=== PATIENT | female | born 1985 | race Caucasian/White ===

== ENCOUNTER 2016-10-06 06:11 | Emergency (ER) | payer OTHER ==
[~2016-10-06] VITALS: Ht 162.6 cm; Wt 54.8 kg
[~2016-10-06 06:11] MED LIST: DRV100 PO; PENI-82 PO
[2016-10-06 06:16] VITALS: TEMP 36.3; Ht 162.6 cm; Wt 54.8 kg
[2016-10-06] MEDS ORDERED: DiphenhydrAMINE HCL 50 MG/ML VIAL IV STA (06:29)
[2016-10-06] MEDS ORDERED: ONDANSETRON INJ 2 MG/ML 2 ML VIAL IV STA (06:29)
[2016-10-06] MEDS ORDERED: KETOROLAC TROMETHAMINE 30 MG/ML VIAL IV STA (06:29)
[2016-10-06] MEDS ORDERED: SODIUM CHLORIDE 0.9% 1000ML 1,000 ML IV STA ×2 (06:29)
--- NOTE | 2016-10-06 06:43 | EMERGENCY ROOM VISIT NOTE ---
History Report prepared by Amadouibana: Guanako Claudio Under the Supervision of: Dr. Homero Souza M.D. First contact with patient: 06:22 Chief Complaint: VOMITING Stated Complaint: VOMITING,PAIN Nursing Triage Summary: Pt complains of headache and vomiting since 3am. Pt with history of migraines. Pt took Tylenol with no relief. History of Present Illness The patient is a 31 year old female who presents to the Emergency Room with complaints of persistent vomiting since 0300 this morning. The patient is currently feeling nauseous and did not find relief from Zofran just after 0300. The patient also complains of a headache since 0300 that was not relieved with Tylenol. The patient has a history of migraines. She denies fevers, neck stiffness, rashes, weakness or numbness of the extremities. She was having trouble sleeping secondary to her symptoms. She denies any head trauma. The patient has no history of abdominal surgeries and denies the possibility of . The patient would like a work note. Source of History: patient Onset: 0300 this morning Position: other (GI) Quality: other (vomiting) Timing: other (persistent) Associated Symptoms: + headache, + nausea, No fevers, No neck pain, No numbness, No rash, No weakness Review of Systems See HPI for pertinent positives & negatives. A total of 10 systems reviewed and were otherwise negative. Past Medical & Surgical Medical Problems: (1) Asthma (2) Bronchitis (3) Migraines Family History Diabetes mellitus Heart disease Hypertension Lung disease Seizures Social History Smoking Status: Current Every Day Smoker Occupation Status: employed Current/Historical Medications No Active Prescriptions or Reported Meds Allergies Coded Allergies: No Known Allergies (Unverified , 10/06/16) Physical Exam Vital Signs Date Time Temp Pulse Resp B/P Pulse Ox O2 Delivery O2 Flow Rate FiO2 10/06/16 08:00 62 18 127/71 94 10/06/16 06:16 36.3 78 18 145/89 96 Room Air Physical Exam GENERAL: Patient is well appearing and in mild distress. HEAD: No acute trauma, normocephalic atraumatic ENT: Mucous membranes moist, no nasal congestion. EYES: Equal/Reactive Bilaterally, No scleral icterus, Normal ROM NECK: No nuchal rigidity, no meningismus, trachea is midline, full ROM LUNGS: No dyspnea. Clear to auscultation and equal bilaterally. No wheeze, no rhonchi. HEART: Regular rate and rhythm. No murmurs, rubs, gallops appreciated. ABDOMEN: Soft, nontender, bowel sounds positive, no masses appreciated, no peritonitis. BACK: No midline tenderness, no CVA tenderness EXTREMITIES: Normal motion all extremities, no cyanosis, no edema. NEUROLOGIC: Awake, Alert, Oriented, no acute motor or sensory deficits, no focal weakness, cranial nerves grossly intact. SKIN: No rash, no jaundice, no diaphoresis. Medical Decision & Procedures Medications Administered Medications (Trade) Dose Ordered Sig/[facility] Route Start Time Stop Time Status Last Admin Dose Admin Ketorolac Tromethamine (Toradol Inj) 30 mg NOW STAT IV 10/06/16 06:29 10/06/16 06:30 DC 10/06/16 06:40 30 MG Ondansetron HCl (Zofran Inj) 4 mg NOW STAT IV 10/06/16 06:29 10/06/16 06:30 DC 10/06/16 06:38 4 MG Diphenhydramine HCl 50 mg 50 mg NOW STAT IV 10/06/16 06:29 10/06/16 06:30 DC 10/06/16 06:39 50 MG Sodium Chloride 1,000 ml @ 999 mls/hr Q1H1M STAT IV 10/06/16 06:29 10/06/16 07:29 DC 10/06/16 06:38 999 MLS/HR Sodium Chloride (Nss 1000ml) 1,000 ml @ 999 mls/hr Q1H1M STAT IV 10/06/16 06:29 10/06/16 07:29 DC 10/06/16 06:29 999 MLS/HR ED Course 0627: The patient was evaluated in room B10. A complete history and physical exam was performed. 0629: NSS 1000 ml @ 999 mls/hr, NSS 1000 ml @ 999 mls/hr, Benadryl 50 mg IV, Zofran 4 mg IV, Toradol 30 mg IV. 0735: Reassessed the patient. She has had complete resolution of her symptoms and wishes to go home. She requested a work note for her as well as her partner. Medical Decision Differential: Headache, Migraine, Cluster Headache, Seizure, Meningitis, Sinusitis, CO exposure, ICH/SAH, Infectious, Tumor, Sinus Thrombosis, Arterial Dissection, amongst other pathologies entertained. 31 yr old female with long history of migraines, often brought on by menstrual cycle, arrives with overnight headache and nausea/vomiting. No risks for dissection. No neuro deficits. Similar to previous headaches. She does not have meningitis nor other evidence of infection. Given above with complete resolution of symptoms and feeling well. Comfortable with discharge. Rest and hydration over next 24-48 hours. Impression Primary Impression: Headache Additional Impressions: Nausea & vomiting Dehydration Scribe Attestation The scribe's documentation has been prepared under my direction and personally reviewed by me in its entirety. I confirm that the note above accurately reflects all work, treatment, procedures, and medical decision making performed by me. Departure Information Dispostion Home / Self-Care Prescriptions No Active Prescriptions or Reported Meds Referrals No Doctor, Assigned (PCP) Forms HOME CARE DOCUMENTATION FORM, IMPORTANT VISIT INFORMATION, Work Instructions Patient Instructions ED Headache Migraine, [facility] Problem Qualifiers
[2016-10-06 08:00] VITALS: BP 127/71; PULSE 62; O2SAT 94
[2017-01-07] MEDS ORDERED: AZIT-57 PO (14:37)
[2017-01-07] MEDS ORDERED: PRED10TA PO (14:37)
[2017-01-07] MEDS ORDERED: ALBINS/ INH (14:38)
== END 2016-10-06 08:03 | disposition home or self-care (01) ==
LOC: C.EDB 06:12
DX: G43.909 Migraine, unspecified, not intractable, without status migrainosus (principal); R11.2 Nausea with vomiting, unspecified; E86.0 Dehydration; J45.909 Unspecified asthma, uncomplicated; F17.200 Nicotine dependence, unspecified, uncomplicated; Z83.3 Family history of diabetes mellitus; Z82.49 Family history of ischemic heart disease and other diseases of the circulatory system; Z82.0 Family history of epilepsy and other diseases of the nervous system

== ENCOUNTER 2017-01-05 09:27 | Inpatient (IN) | payer OTHER ==
[~2017-01-05] VITALS: Ht 160 cm; Wt 51.0 kg
[2017-01-05] MEDS ORDERED: ALBUT/IPRATROP 3MG/0.5MG NEB 3 ML VIAL INH STA ×4 (09:37→12:58)
[2017-01-05] MEDS ORDERED: VNTHFA/IN INH (10:00)
[2017-01-05] MEDS ORDERED: PREDPOW47 PO (10:00)
[2017-01-05 10:01] LABS: BASO % 0.1 %; BASO ABS # 0.01 K/uL (0-0.2); COMPLETE YES; EOS % 0.1 %; HEMATOCRIT 45.1 % (37-47); IG% 0.2 %; LYMPH % 14.8 %; LYMPH ABS # 1.73 K/uL (1.2-3.4); MEAN CORPUSCULAR HEMOGLOBIN 34.6 pg (25-34); MEAN CORPUSCULAR HGB CONC 35.3 g/dl (32-36); MEAN PLATELET VOLUME 10.4 fL (7.4-10.4); MONO % 5.3 %; NEUT % 79.5 %; PLATELET COUNT 152 K/uL (130-400); WHITE BLOOD COUNT 11.69 K/uL (4.8-10.8)
[2017-01-05] MEDS ORDERED: METHYLPREDNISOLONE 125 MG VIAL IV STA (10:08)
[2017-01-05 10:18] LABS: BUN/CREATININE RATIO 11.9 (10-20); CALCIUM 9.2 mg/dl (8.5-10.1); POTASSIUM 3.5 mmol/L (3.5-5.1)
--- NOTE | 2017-01-05 10:25 | DIAGNOSTIC IMAGING REPORT ---
CHEST ONE VIEW PORTABLE HISTORY: 31 years-old Female SOB, asthma, wheezing COMPARISON: None available TECHNIQUE: Portable upright AP view of the chest. FINDINGS: Cardiomediastinal and hilar silhouettes are within normal limits. No pneumothorax or pleural effusion. Linear retrocardiac subsegmental opacities suggest atelectasis. Bones are grossly intact. IMPRESSION: Linear subsegmental retrocardiac opacity suggests atelectasis. Lungs are otherwise clear. The above report was generated using voice recognition software. It may contain grammatical, syntax or spelling errors. Electronically signed by: Raymond Miller M.D. 01/05/2017 10:24 AM Dictated Date/Time: 01/05/2017 10:23 AM
[2017-01-05 11:30] LABS: URINE APPEARANCE CLEAR (CLEAR); URINE BILIRUBIN NEG (NEG); URINE COLOR YELLOW; URINE NITRITE NEG (NEG); URINE SPECIFIC GRAVITY 1.022 (1.000-1.030); UROBILINOGEN NEG (NEG); ZZUR CULT IF INDIC CLEAN CATCH NO
[2017-01-05 11:35] LABS: MANUAL MICROSCOPIC REQUIRED? NO; REVIEW REQ? NO
[2017-01-05] MEDS ORDERED: HYDROCODONE/HOMATROPINE SYRUP 5MG/1.5MG 5ML UDP PO STA (11:43)
[2017-01-05] MEDS ORDERED: MAGNESIUM SULFATE 1GM / D5W 1 GM BAG IV STA (12:58)
[2017-01-05] MEDS ORDERED: GUAIFENESIN/CODEINE 100MG/10MG 5ML UDC PO PRN (14:00)
[2017-01-05] MEDS ORDERED: MAGNESIUM HYDROXIDE SUSP 30 ML UDC PO PRN (14:00)
[2017-01-05] MEDS ORDERED: NITROGLYCERIN 0.4 MG SL PER TAB CHARGE SL PRN (14:00)
[2017-01-05] MEDS ORDERED: LEVALBUTEROL/IPRATROPIUM NEB INH PRN (14:00)
[2017-01-05] MEDS ORDERED: ACETAMINOPHEN 325 MG TAB PO PRN (14:00)
[2017-01-05] MEDS ORDERED: ALUMINUM/MAGNESIUM/SIMETH (MAALOX MAX) 30 ML UDC PO PRN (14:00)
[2017-01-05] MEDS ORDERED: ONDANSETRON INJ 2 MG/ML 2 ML VIAL IV PRN (14:00)
[2017-01-05] MEDS ORDERED: ALBUTEROL HFA 8 GM INHALER INH PRN (14:00)
[2017-01-05] MEDS ORDERED: AZITHROMYCIN IV 500 MG in DEXTROSE 5% 250ML 250 ML IV SCH (14:30)
[2017-01-05 14:57] VITALS: BP 152/98; PULSE 84; TEMP 36.9; O2SAT 94; Ht 160 cm; Wt 51.0 kg
[2017-01-05] MEDS ORDERED: LEVALBUTEROL/IPRATROPIUM NEB INH SCH (15:00)
[2017-01-05] MEDS: IPRATROPIUM BROMIDE NEB SOLN 0.02% 2.5 ML VIAL INH PRN (16:16)
[2017-01-05] MEDS: LEVALBUTEROL 1.25MG/0.5ML NEB INH PRN (16:16)
[2017-01-05 16:17] VITALS: PULSE 84; O2SAT 93
--- NOTE | 2017-01-05 16:17 | EMERGENCY ROOM VISIT NOTE ---
History Report prepared by Sanket: Rolando Morgan Under the Supervision of: Dr. Angel Laboy M.D. First contact with patient: 09:36 Chief Complaint: COUGH Stated Complaint: ASTHMA Nursing Triage Summary: pt reports hx of asthma. pt reports for the past 4 days she has had a productive cough with clear sputum. pt reports taking steroids and inhaler with no relief. History of Present Illness The patient is a 31 year old female who presents to the Emergency Room with complaints of a constant cough that started 4 days ago. She rates her discomfort as a 6/10 in severity. The patient reports that she has been experiencing a productive cough with intermittent clear sputum. The patient states that she went to outpatient care for her symptoms, where they gave her steroids and an inhaler. She admits that she took steroids, which she has been taking for three days, and used her inhaler for her symptoms, but denies any relief. She also reports that she has been experiencing abdominal pain, which she believes is due to her coughing. The patient states that she has also been experiencing chest tightness and intermittent pain. The patient admits that she has had asthma for a long time. She denies being admitted for asthma in the past. She states that her PCP is Dr. Mathis. The patient admits that she had recently quit smoking due to her current symptoms. The patient denies any other medical problems, edema to her legs, being around someone sick, headache, fevers , chills, diaphoresis, visual changes, neck pain, nausea, vomiting, back pain, melena, hematochezia, urinary symptoms, numbness, weakness, lymphadenopathy, rash, or other complaints. Source of History: patient Onset: four days ago Position: other (global) Symptom Intensity: 6/10 Timing: constant Modifying Factors (Relieving): other (steroids, inhaler) Associated Symptoms: + chest pain, + abdominal pain Review of Systems See HPI for pertinent positives and negatives. A total of ten systems were reviewed and were otherwise negative. Past Medical & Surgical Medical Problems: (1) Asthma (2) Asthma exacerbation (3) Bronchitis (4) Migraines Family History Cancer Diabetes mellitus Gallbladder disease Heart disease Hypertension Kidney disease Kidney stones Lung disease Seizures Social History Smoking Status: Current Every Day Smoker Alcohol Use: none Marital Status: in relationship Housing Status: lives with family, lives with significant other Occupation Status: employed Current/Historical Medications Scheduled Albuterol Hfa (Ventolin Hfa), 2 PUFFS INH Q1H Prednisolone (Prednisolone), 10 PO UD Allergies Coded Allergies: No Known Allergies (Unverified , 01/05/17) Physical Exam Vital Signs Date Time Temp Pulse Resp B/P (MAP) Pulse Ox O2 Delivery O2 Flow Rate FiO2 01/05/17 13:00 99 27 90 Room Air 01/05/17 12:09 83 20 134/75 94 Room Air 01/05/17 10:25 82 22 144/96 95 Room Air 01/05/17 10:18 88 01/05/17 10:01 94 Room Air 01/05/17 09:30 36.7 87 25 151/96 90 Room Air Physical Exam GENERAL: Awake, alert, non-toxic appearing, in no distress HENT: Normocephalic, atraumatic. Oropharynx unremarkable. EYES: Normal conjunctiva. Sclera non-icteric. NECK: Supple. No nuchal rigidity. FROM. No JVD. RESPIRATORY: Diffuse rhonchi and wheezing bilaterally. CARDIAC: Borderline tachycardic, normal rhythm. Extremities warm and well perfused. Pulses equal. ABDOMEN: Soft, non-distended. No tenderness to palpation. No rebound or guarding. No masses. RECTAL: Deferred. MUSCULOSKELETAL: Chest examination reveals no tenderness. The back is symmetrical on inspection without obvious abnormality. There is no CVA tenderness to palpation. No joint edema. LOWER EXTREMITIES: Calves are equal size bilaterally and non-tender. No edema. No discoloration. NEURO: Normal sensorium. No sensory or motor deficits noted. SKIN: No rash or jaundice noted. Medical Decision & Procedures ER Provider Diagnostic Interpretation: X-ray: Per my interpretation, radiologist review. CHEST ONE VIEW PORTABLE HISTORY: 31 years-old Female SOB, asthma, wheezing COMPARISON: None available TECHNIQUE: Portable upright AP view of the chest. FINDINGS: Cardiomediastinal and hilar silhouettes are within normal limits. No pneumothorax or pleural effusion. Linear retrocardiac subsegmental opacities suggest atelectasis. Bones are grossly intact. IMPRESSION: Linear subsegmental retrocardiac opacity suggests atelectasis. Lungs are otherwise clear. The above report was generated using voice recognition software. It may contain grammatical, syntax or spelling errors. Electronically signed by: Raymond Miller M.D. 01/05/2017 10:24 AM Dictated Date/Time: 01/05/2017 10:23 AM Laboratory Results 01/05/17 09:48 Red Blood Count 4.60, Mean Corpuscular Volume 98.0, Mean Corpuscular Hemoglobin 34.6, Mean Corpuscular Hemoglobin Concent 35.3, Mean Platelet Volume 10.4, Neutrophils (%) (Auto) 79.5, Lymphocytes (%) (Auto) 14.8, Monocytes (%) (Auto) 5.3, Eosinophils (%) (Auto) 0.1, Basophils (%) (Auto) 0.1, Neutrophils # (Auto) 9.30, Lymphocytes # (Auto) 1.73, Monocytes # (Auto) 0.62, Eosinophils # (Auto) 0.01, Basophils # (Auto) 0.01 01/05/17 09:48 Test 01/05/17 09:48 01/05/17 11:05 White Blood Count 11.69 K/uL (4.8-10.8) Red Blood Count 4.60 M/uL (4.2-5.4) Hemoglobin 15.9 g/dL (12.0-16.0) Hematocrit 45.1 % (37-47) Mean Corpuscular Volume 98.0 fL (80-100) Mean Corpuscular Hemoglobin 34.6 pg (25-34) Mean Corpuscular Hemoglobin Concent 35.3 g/dl (32-36) Platelet Count 152 K/uL (130-400) Mean Platelet Volume 10.4 fL (7.4-10.4) Neutrophils (%) (Auto) 79.5 % Lymphocytes (%) (Auto) 14.8 % Monocytes (%) (Auto) 5.3 % Eosinophils (%) (Auto) 0.1 % Basophils (%) (Auto) 0.1 % Neutrophils # (Auto) 9.30 K/uL (1.4-6.5) Lymphocytes # (Auto) 1.73 K/uL (1.2-3.4) Monocytes # (Auto) 0.62 K/uL (0.11-0.59) Eosinophils # (Auto) 0.01 K/uL (0-0.5) Basophils # (Auto) 0.01 K/uL (0-0.2) RDW Standard Deviation 43.7 fL (36.4-46.3) RDW Coefficient of Variation 12.1 % (11.5-14.5) Immature Granulocyte % (Auto) 0.2 % Immature Granulocyte # (Auto) 0.02 K/uL (0.00-0.02) Anion Gap 7.0 mmol/L (3-11) Est Creatinine Clear Calc Drug Dose 67.3 ml/min Estimated GFR () 87.6 Estimated GFR (Non- 75.5 BUN/Creatinine Ratio 11.9 (10-20) Calcium Level 9.2 mg/dl (8.5-10.1) Total Bilirubin 0.6 mg/dl (0.2-1) Direct Bilirubin 0.2 mg/dl (0-0.2) Aspartate Amino Transf (AST/SGOT) 19 U/L (15-37) Alanine Aminotransferase (ALT/SGPT) 34 U/L (12-78) Alkaline Phosphatase 72 U/L (45-117) Total Protein 8.0 gm/dl (6.4-8.2) Albumin 4.1 gm/dl (3.4-5.0) Urine Color YELLOW Urine Appearance CLEAR (CLEAR) Urine pH 5.0 (4.5-7.5) Urine Specific [place] 1.022 (1.000-1.030) Urine Protein NEG (NEG) Urine Glucose (UA) NEG (NEG) Urine Ketones NEG (NEG) Urine Occult Blood NEG (NEG) Urine Nitrite NEG (NEG) Urine Bilirubin NEG (NEG) Urine Urobilinogen NEG (NEG) Urine Leukocyte Esterase NEG (NEG) Urine Test NEG (NEG) Laboratory results reviewed by me Medications Administered Medications (Trade) Dose Ordered Sig/[facility] Route Start Time Stop Time Status Last Admin Dose Admin Albuterol/ Ipratropium (Duoneb) 3 ml NOW STAT INH 01/05/17 09:37 01/05/17 09:38 DC 01/05/17 09:58 3 ML Methylprednisolone Sodium Succinate (Solu-Medrol IV) 125 mg NOW STAT IV 01/05/17 10:08 01/05/17 10:09 DC 01/05/17 10:23 125 MG Albuterol/ Ipratropium (Duoneb) 3 ml NOW STAT INH 01/05/17 10:11 01/05/17 10:12 DC 01/05/17 10:23 3 ML Albuterol/ Ipratropium (Duoneb) 3 ml NOW STAT INH 01/05/17 11:43 01/05/17 11:44 DC 01/05/17 11:51 3 ML Hydrocodone Bit/ Homatropine Methylb (Hycodan Syrup) 5 ml NOW STAT PO 01/05/17 11:43 01/05/17 11:44 DC 01/05/17 11:50 5 ML Albuterol/ Ipratropium (Duoneb) 3 ml NOW STAT INH 01/05/17 12:58 01/05/17 12:59 DC 01/05/17 13:08 3 ML Magnesium Sulfate (Magnesium Sulfate) 1 gm NOW STAT IV 01/05/17 12:58 01/05/17 12:59 DC 01/05/17 13:08 1 GM ED Course 0937: Ordered Duoneb 3 ml INH. 1001: The patient was evaluated in room B10. A complete history and physical exam was performed. 1008: Ordered Solu-Medrol IV 125 mg IV. 1011: Ordered Duoneb 3 ml INH. 1138: I reevaluated the patient and she is feeling somewhat better. She is still wheezing. 1143: Ordered Hycodan Syrup 5 ml PO, Duoneb 3 ml INH. 1258: Ordered Magnesium Sulfate 1 gm IV, Duoneb 3 ml INH. 1305: I reevaluated the patient and she is still short of breath. She did not do well on her ambulatory trial with nursing. Her saturation after treatment is 90 percent. 1345: I discussed the patients case with Dr. Mari, [facility] Hospitalist. He understands the patients condition and agrees to accept the patient. The patient will be further evaluated. Medical Decision Triage Nursing notes reviewed. The patient's presentation and history were concerning for shortness of breath and a history of reactive airway disease. Etiologies such as reactive airway disease, pneumonia, COPD, CHF, cardiac ischemia, pulmonary embolism, pneumothorax, musculoskeletal, infections, gastrointestinal, as well as others were entertained. The patient was evaluated. She had significant wheezing. She has been treated for several days as an outpatient. She was given nebulizer treatments and IV Solu-Medrol. She also received a dose of oral Hycodan. The patient was reassessed frequently. Chest x-ray did not reveal any evidence of pneumonia. Blood work showed a slight leukocytosis however the patient is currently taking steroids. Chemistry panel is unremarkable. The patient had an ambulatory trial performed. Her pulse oximetry was only 90%. She was tachypneic with this. She was given another nebulizer treatment for a total of 4 and a dose of IV magnesium. At this point I discussed coming into the hospital as she is failing outpatient management. The patient was in agreement. Consultation was made with the [facility] Hospitalist service. The patient was evaluated in the further management. Medication Reconcilliation Current Medication List: was personally reviewed by me Blood Pressure Screening Patient's blood pressure: Elevated blood pressure Blood pressure disposition: Elevated BP felt to be situational Consults Time Called: 1345 Consulting Physician: Dr. Mari [facility] Hospitalist Returned Call: 1345 I discussed the patients case with Dr. Mari [facility] Hospitalist. He understands the patients condition and agrees to accept the patient. The patient will be further evaluated. Impression Primary Impression: Reactive airway disease Additional Impression: Shortness of breath Scribe Attestation The scribe's documentation has been prepared under my direction and personally reviewed by me in its entirety. I confirm that the note above accurately reflects all work, treatment, procedures, and medical decision making performed by me. Departure Information Dispostion Being Evaluated By Hospitalist Referrals Tarik Marks M.D. (PCP) Patient Instructions My [facility] Problem Qualifiers
[2017-01-05] MEDS: METHYLPREDNISOLONE IV 40 MG in SYRINGE 0 ML IV SCH (16:58)
[2017-01-05] MEDS: LEVALBUTEROL 0.63MG/3 ML NEB INH SCH (19:34)
[2017-01-05 19:35] VITALS: PULSE 87; O2SAT 93
[2017-01-05] MEDS: IPRATROPIUM BROMIDE NEB SOLN 0.02% 2.5 ML VIAL INH SCH (19:35)
--- NOTE | 2017-01-05 19:36 | HISTORY & PHYSICAL EXAMINATION ---
DATE OF ADMISSION: 01/05/2017 CHIEF COMPLAINT: Shortness of breath. HISTORY OF PRESENT ILLNESS: A 31-year-old female with past medical history significant for asthma, bipolar, tobacco abuse, presents with shortness of breath and cough going on for the last 4 days who is taking rescue Prednisone and albuterol inhaler but not getting better, so she came to the ER. In the ER, after the one hour of treatments and IV steroids, she was still saturating 90% and we are called for admission. The patient is having dry cough. Denies any fever, chills, no headaches, no blurred vision, no nausea, no vomiting, has some abdominal pain while she was coughing, no diarrhea, no constipation, no blood in the urine, no blood in the stools. Currently, resting comfortably, somewhat tachycardic and oxygen saturation 90% on room air. ALLERGIES: No known drug allergies. PAST MEDICAL HISTORY: As mentioned above. PAST SURGICAL HISTORY: None. MEDICATIONS: Currently, the patient is on albuterol inhaler p.r.n. and prednisone rescue kit. FAMILY HISTORY: Significant for father has hypertension and [place]. Paternal grandfather has epilepsy and diabetes. SOCIAL HISTORY: She has quit smoking in 2011. Prior to that smoked 1 pack a day for 9 years. Denies any alcohol use. Smokes marijuana. REVIEW OF SYMPTOMS: As per HPI. Rest of review of symptoms negative. PHYSICAL EXAMINATION: GENERAL: The patient is of moderate build, not in distress. VITAL SIGNS: Temperature 36.7, pulse 99, respiratory rate 20, blood pressure 134/75, oxygen 90% room air. HEENT: No pallor, no icterus. Pupils equal, round, and reactive to light. NECK: No JVD, no neck masses, no carotid bruits. CARDIOVASCULAR: S1, S2 heard. Tachycardia. No murmur, no gallop. RESPIRATORY SYSTEM: Normal AP diameter. No accessory muscle use, bilateral rhonchi heard. No crackles. ABDOMEN: Soft, bowel sounds, nontender. No distention. CENTRAL NERVOUS SYSTEM: Cranial nerves are grossly intact. Nonfocal. EXTREMITIES: No edema, no erythema. LABS: WBC 11.6, hemoglobin 15.9, hematocrit 45.1, platelets 152. Sodium 142, potassium 3.5, chloride 111, CO2 24, BUN 12, creatinine 1, serum glucose 100. Calcium 9.2, total bilirubin 0.6, direct bilirubin 0.2, AST 19, ALT 34 alkaline phosphatase 72 Urinalysis negative. Urine test negative. IMAGING DATA: Chest x-ray: No acute findings, bibasilar atelectasis. ASSESSMENT AND PLAN: This is a 31-year-old female who presents with acute asthma. 1. Asthma exacerbation, probable bronchitis. failed out patient treatment moderate persistent asthma exacerbation? Will place on IV steroids, azithromycin, nebs around the clock and p.r.n. and monitor on tele floor. 2. Depression, not on medication. Follow with the family doctor. 4. Deep vein thrombosis prophylaxis, sequential compression devices and TEDs for now. 5. Disposition: Admit floor. Expect to discharge home and follow with the family doctor. Level 1 full code. MTDD
[2017-01-05 19:47] VITALS: BP 158/85; PULSE 76; TEMP 36.7; O2SAT 92
[2017-01-06] VITALS (13 sets, daily range): BP systolic 136–157; BP diastolic 71–93; PULSE 71–94; TEMP 36.3–36.8; O2SAT 90–95
[2017-01-06] MEDS: IPRATROPIUM BROMIDE NEB SOLN 0.02% 2.5 ML VIAL INH SCH ×4 (02:25→19:18)
[2017-01-06] MEDS: LEVALBUTEROL 0.63MG/3 ML NEB INH SCH ×4 (02:25→19:18)
[2017-01-06] MEDS: METHYLPREDNISOLONE IV 40 MG in SYRINGE 0 ML IV SCH (02:35)
--- NOTE | 2017-01-06 06:55 | Clinical Documentation Query ---
CLINICAL DOCUMENTATION QUERY 31 year old female who presents to the Emergency Room with complaints asthma exacerbation that has failed outpatient treatment with Prednisone and Albuterol inhaler. In your clinical opinion is this patient being managed for: ( ) Mild persistent asthma with exacerbation ( x ) Moderate persistent asthma with exacerbation ( ) Severe persistent asthma with exacerbation ( ) Not Agree ( ) Other explanation of clinical findings (Please Explain) ( ) Unable to determine (Please Define) ( ) Need to Discuss The medical record reflects the following clinical findings, treatment, and risk factors. Clinical Indicators: Presents with cough and rhonchi bilaterally. Failed outpatient treatment with rescue inhaler and Prednisone. Treatment: O2, IV Solumedrol, Duonebs, Azithromycin Risk Factors: Hx of asthma on 1 rescue inhaler Please clarify and document your clinical opinion in the progress notes and discharge summary. Terms such as "probable", "suspected", "likely", "questionable", "possible", or "still to be ruled out" are acceptable. IF IN AGREEMENT, YOU MUST DOCUMENT ABOVE DIAGNOSTIC STATEMENT IN DAILY PROGRESS NOTES AND DISCHARGE SUMMARY. This document is not part of the patient's record. Thank You, Freeman Sanchez, ELAINE [phone]
[2017-01-06] MEDS: AZITHROMYCIN 250 MG TAB PO SCH (07:04)
[2017-01-06 07:38] LABS: COMPLETE YES; HEMATOCRIT 41.6 % (37-47); IG% 0.3 %; LYMPH ABS # 0.78 K/uL (1.2-3.4); MEAN CELL VOLUME 97.2 fL (80-100); MEAN CORPUSCULAR HEMOGLOBIN 34.8 pg (25-34); MEAN CORPUSCULAR HGB CONC 35.8 g/dl (32-36); MEAN PLATELET VOLUME 10.2 fL (7.4-10.4); MONO % 2.2 %; NEUT % 90.5 %; PLATELET COUNT 168 K/uL (130-400); RED BLOOD COUNT 4.28 M/uL (4.2-5.4); WHITE BLOOD COUNT 11.14 K/uL (4.8-10.8)
[2017-01-06 08:11] LABS: BUN/CREATININE RATIO 13.4 (10-20); CALCIUM 9.3 mg/dl (8.5-10.1); CREATININE 0.86 mg/dl (0.60-1.20); MAGNESIUM 2.2 mg/dl (1.8-2.4)
--- NOTE | 2017-01-06 10:20 | Progress Note ---
Internal Med Progress Note Date of Service: Jan 06, 2017. Provider Documentation: SUBJECTIVE: little better but still has sob and coughing no fevers no pain no nausea still requiring oxygen OBJECTIVE: Vital Signs-as noted below Exam: General-alert and oriented. Not in distress ENT-normal hearing Neck-no neck masses Lungs-cta b/l b/l rhonchi heard no crackles Heart-s1 and s2 heard regular rate and rhythm, no murmurs Abdomen-soft bowel sounds present non tender no distension Extremities no edema no erythema Neuro-alert and oriented moves extremities Lab data as noted below. ASSESSMENT & PLAN: This is a 31-year-old female who presents with acute asthma. 1. Asthma exacerbation, probable bronchitis. failed out patient treatment moderate persistent asthma exacerbation? on IV steroids, azithromycin, nebs around the clock and p.r.n. and monitor on tele floor. slow improvement continue same. 2. Depression, not on medication. Follow with the family doctor. 4. Deep vein thrombosis prophylaxis, sequential compression devices and TEDs for now. 5. Disposition: Transfer to medical floor. Expect to discharge home and follow with the family doctor. Level 1 full code. Vital Signs: Date Time Temp Pulse Resp B/P (MAP) Pulse Ox O2 Delivery O2 Flow Rate FiO2 01/06/17 08:09 92 Nasal Cannula 2.0 01/06/17 07:55 36.5 71 18 157/87 (110) 92 01/06/17 07:38 90 16 90 Nasal Cannula 2.0 01/06/17 04:21 36.3 90 20 149/89 (109) 92 Nasal Cannula 01/06/17 04:00 Room Air 2.0 Nasal Cannula 01/06/17 02:26 82 16 90 Room Air 01/06/17 00:21 36.6 77 18 137/71 (93) 91 Room Air 01/06/17 00:01 Room Air 2.0 Nasal Cannula 01/05/17 20:00 Room Air 2.0 Nasal Cannula 01/05/17 19:47 36.7 76 20 158/85 (109) 92 Nasal Cannula 2.0 01/05/17 19:35 87 12 93 Nasal Cannula 2.0 01/05/17 16:17 84 12 93 Nasal Cannula 2.0 01/05/17 14:57 36.9 84 20 152/98 94 Nasal Cannula 2.0 01/05/17 14:01 87 20 135/85 91 Room Air 01/05/17 13:53 86 01/05/17 13:00 99 27 90 Room Air 01/05/17 12:09 83 20 134/75 94 Room Air 01/05/17 10:25 82 22 144/96 95 Room Air Lab Results: Results Past 24 Hours Test 01/05/17 11:05 01/06/17 07:22 Range/Units Urine Color YELLOW Urine Appearance CLEAR CLEAR Urine pH 5.0 4.5-7.5 Urine Specific [place] 1.022 1.000-1.030 Urine Protein NEG NEG Urine Glucose (UA) NEG NEG Urine Ketones NEG NEG Urine Occult Blood NEG NEG Urine Nitrite NEG NEG Urine Bilirubin NEG NEG Urine Urobilinogen NEG NEG Urine Leukocyte Esterase NEG NEG Urine Test NEG NEG White Blood Count 11.14 4.8-10.8 K/uL Red Blood Count 4.28 4.2-5.4 M/uL Hemoglobin 14.9 12.0-16.0 g/dL Hematocrit 41.6 37-47 % Mean Corpuscular Volume 97.2 80-100 fL Mean Corpuscular Hemoglobin 34.8 25-34 pg Mean Corpuscular Hemoglobin Concent 35.8 32-36 g/dl Platelet Count 168 130-400 K/uL Mean Platelet Volume 10.2 7.4-10.4 fL Neutrophils (%) (Auto) 90.5 % Lymphocytes (%) (Auto) 7.0 % Monocytes (%) (Auto) 2.2 % Eosinophils (%) (Auto) 0.0 % Basophils (%) (Auto) 0.0 % Neutrophils # (Auto) 10.09 1.4-6.5 K/uL Lymphocytes # (Auto) 0.78 1.2-3.4 K/uL Monocytes # (Auto) 0.24 0.11-0.59 K/uL Eosinophils # (Auto) 0.00 0-0.5 K/uL Basophils # (Auto) 0.00 0-0.2 K/uL RDW Standard Deviation 42.6 36.4-46.3 fL RDW Coefficient of Variation 12.0 11.5-14.5 % Immature Granulocyte % (Auto) 0.3 % Immature Granulocyte # (Auto) 0.03 0.00-0.02 K/uL Sodium Level 139 136-145 mmol/L Potassium Level 4.0 3.5-5.1 mmol/L Chloride Level 107 98-107 mmol/L Carbon Dioxide Level 24 21-32 mmol/L Anion Gap 8.0 3-11 mmol/L Blood Urea Nitrogen 12 7-18 mg/dl Creatinine 0.86 0.60-1.20 mg/dl Est Creatinine Clear Calc Drug Dose 77.0 ml/min Estimated GFR () 105.1 Estimated GFR (Non- 90.7 BUN/Creatinine Ratio 13.4 10-20 Random Glucose 115 70-99 mg/dl Calcium Level 9.3 8.5-10.1 mg/dl Magnesium Level 2.2 1.8-2.4 mg/dl
[2017-01-06] MEDS: METHYLPREDNISOLONE IV 60 MG in SYRINGE 0 ML IV SCH ×2 (11:07→18:05)
[2017-01-06] MEDS: IPRATROPIUM BROMIDE NEB SOLN 0.02% 2.5 ML VIAL INH PRN (13:05)
[2017-01-06] MEDS: LEVALBUTEROL 1.25MG/0.5ML NEB INH PRN (13:05)
[2017-01-07] VITALS (8 sets, daily range): BP systolic 139; BP diastolic 76; PULSE 76–92; TEMP 36.6; O2SAT 90–94
[2017-01-07] MEDS: IPRATROPIUM BROMIDE NEB SOLN 0.02% 2.5 ML VIAL INH SCH ×3 (01:39→14:33)
[2017-01-07] MEDS: LEVALBUTEROL 0.63MG/3 ML NEB INH SCH ×3 (01:39→14:33)
[2017-01-07] MEDS: METHYLPREDNISOLONE IV 60 MG in SYRINGE 0 ML IV SCH ×2 (01:51→09:26)
[2017-01-07 06:21] LABS: BASO % 0.1 %; BASO ABS # 0.01 K/uL (0-0.2); COMPLETE YES; HEMATOCRIT 44.1 % (37-47); IG% 0.3 %; LYMPH % 6.5 %; LYMPH ABS # 0.83 K/uL (1.2-3.4); MEAN CELL VOLUME 100.5 fL (80-100); MEAN CORPUSCULAR HEMOGLOBIN 33.9 pg (25-34); MEAN CORPUSCULAR HGB CONC 33.8 g/dl (32-36); MEAN PLATELET VOLUME 10.4 fL (7.4-10.4); MONO % 2.4 %; NEUT % 90.7 %; PLATELET COUNT 179 K/uL (130-400); RED BLOOD COUNT 4.39 M/uL (4.2-5.4); WHITE BLOOD COUNT 12.69 K/uL (4.8-10.8)
[2017-01-07 07:00] LABS: BUN/CREATININE RATIO 17.9 (10-20); CALCIUM 9.1 mg/dl (8.5-10.1); CREATININE 0.98 mg/dl (0.60-1.20); MAGNESIUM 2.4 mg/dl (1.8-2.4); POTASSIUM 4.3 mmol/L (3.5-5.1)
[2017-01-07] MEDS: LEVALBUTEROL 1.25MG/0.5ML NEB INH PRN (07:50)
[2017-01-07] MEDS: AZITHROMYCIN 250 MG TAB PO SCH (08:18)
[2017-01-07] MEDS ORDERED: ZTHM250 PO (14:37)
[2017-01-07] MEDS ORDERED: PRED10TA PO (14:37)
[2017-01-07] MEDS ORDERED: ALBINS/ INH (14:38)
--- NOTE | 2017-01-07 14:40 | Discharge Instructions ---
Discharge Instructions Date of Service Jan 07, 2017. Admission Reason for Admission: Asthma Exacerbation Discharge Discharge Diagnosis / Problem: ASTHMA EXACERBATION Discharge Goals Goal(s): Decrease discomfort, Improve function Activity Recommendations Activity Limitations: resume your previous activity . Instructions / Follow-Up Instructions / Follow-Up FOLLOWUP WITH FAMILY DOCTOR Tarik Novoa ON AT 11AM. Current Hospital Diet Patient's current hospital diet: Regular Diet Discharge Diet Recommended Diet: Regular Diet Pending Studies Studies pending at discharge: no Work Instructions Return To Work: after follow-up Additional Instructions: LEAVE FROM WORK UNTIL SEEN BY FAMILY DOCTOR NO STERNOUS ACTIVITY Medical Emergencies . Who to Call and When: Medical Emergencies: If at any time you feel your situation is an emergency, please call 911 immediately. . Non-Emergent Contact Non-Emergency issues call your: Primary Care Provider . . "Provider Documentation" section prepared by Wyatt Mari. . VTE Core Measure Inpt VTE Proph given/why not?: SCD's
--- NOTE | 2017-01-07 16:57 | Progress Note ---
Internal Med Progress Note Date of Service: Jan 07, 2017. Provider Documentation: SUBJECTIVE: cough improved ambulating fine sats ok on room air afebrile 'want to go home OBJECTIVE: Vital Signs-as noted below Exam: General-alert and oriented. Not in distress ENT-normal hearing Neck-no neck masses Lungs-cta b/l occasional wheezing no crackles Heart-s1 and s2 heard regular rate and rhythm, no murmurs Abdomen-soft bowel sounds present non tender no distension Extremities no edema no erythema Neuro-alert and oriented moves extremities Lab data as noted below. ASSESSMENT & PLAN: This is a 31-year-old female who presents with acute asthma. 1. Asthma exacerbation, probable bronchitis. failed out patient treatment moderate persistent asthma exacerbation? on IV steroids, azithromycin, nebs around the clock and p.r.n. and monitor on tele floor. improved discharged on albuterol nebs and prednisone taper and azithromycin to complete the course f/u with pcp. 2. Depression, not on medication. Follow with the family doctor. discharged home Vital Signs: Date Time Temp Pulse Resp B/P (MAP) Pulse Ox O2 Delivery O2 Flow Rate FiO2 01/07/17 14:37 36.6 76 15 93 Room Air 01/07/17 14:34 92 15 91 Nasal Cannula 2.0 01/07/17 13:00 93 Humidified Oxygen 2.0 01/07/17 11:08 90 Room Air 01/07/17 09:31 90 Room Air 01/07/17 08:10 Nasal Cannula 2.0 01/07/17 07:50 76 15 92 Nasal Cannula 2.0 01/07/17 07:26 36.6 90 19 139/76 (97) 92 Nasal Cannula 01/07/17 01:40 84 16 94 Nasal Cannula 2.0 01/07/17 00:00 Nasal Cannula 2.0 01/06/17 23:55 36.6 91 18 149/93 (111) 91 Room Air 01/06/17 20:00 Nasal Cannula 2.0 01/06/17 19:21 76 16 95 Room Air Lab Results: Results Past 24 Hours Test 01/07/17 05:47 Range/Units White Blood Count 12.69 4.8-10.8 K/uL Red Blood Count 4.39 4.2-5.4 M/uL Hemoglobin 14.9 12.0-16.0 g/dL Hematocrit 44.1 37-47 % Mean Corpuscular Volume 100.5 80-100 fL Mean Corpuscular Hemoglobin 33.9 25-34 pg Mean Corpuscular Hemoglobin Concent 33.8 32-36 g/dl Platelet Count 179 130-400 K/uL Mean Platelet Volume 10.4 7.4-10.4 fL Neutrophils (%) (Auto) 90.7 % Lymphocytes (%) (Auto) 6.5 % Monocytes (%) (Auto) 2.4 % Eosinophils (%) (Auto) 0.0 % Basophils (%) (Auto) 0.1 % Neutrophils # (Auto) 11.51 1.4-6.5 K/uL Lymphocytes # (Auto) 0.83 1.2-3.4 K/uL Monocytes # (Auto) 0.30 0.11-0.59 K/uL Eosinophils # (Auto) 0.00 0-0.5 K/uL Basophils # (Auto) 0.01 0-0.2 K/uL RDW Standard Deviation 44.4 36.4-46.3 fL RDW Coefficient of Variation 12.1 11.5-14.5 % Immature Granulocyte % (Auto) 0.3 % Immature Granulocyte # (Auto) 0.04 0.00-0.02 K/uL Sodium Level 139 136-145 mmol/L Potassium Level 4.3 3.5-5.1 mmol/L Chloride Level 107 98-107 mmol/L Carbon Dioxide Level 25 21-32 mmol/L Anion Gap 7.0 3-11 mmol/L Blood Urea Nitrogen 18 7-18 mg/dl Creatinine 0.98 0.60-1.20 mg/dl Est Creatinine Clear Calc Drug Dose 67.6 ml/min Estimated GFR () 89.7 Estimated GFR (Non- 77.4 BUN/Creatinine Ratio 17.9 10-20 Random Glucose 114 70-99 mg/dl Calcium Level 9.1 8.5-10.1 mg/dl Magnesium Level 2.4 1.8-2.4 mg/dl
--- NOTE | 2017-01-07 18:43 | Discharge Summary ---
Discharge Summary Date of Service Jan 07, 2017. Discharge Summary Admission Date: Jan 05, 2017 at 13:52 Discharge Date: Jan 07, 2017 Discharge Disposition: Home Principal Diagnosis: ASTHMA EXACERBATION Secondary Diagnoses/Problems: asthma, bipolar, tobacco abuse Procedures: CXR; Linear subsegmental retrocardiac opacity suggests atelectasis. Lungs are otherwise clear. Medication Reconciliation New Medications: Albuterol Sulf (Proventil 0.083% 2.5MG/3ML) 2.5 Mg/3 Ml Nebu 2.5 MG INH QID PRN for SOB/Wheezing, #1 EA 3 Refills Prednisone Tab (Prednisone) 10 Mg Tab 60 MG PO UD, #42 TAB PREDNSIONE 60MG PO DAILY X 2 DAYS THEN PREDNSIONE 50MG PO DAILY X 2 DAYS THEN PREDNSIONE 40MG PO DAILY X 2 DAYS THEN PREDNSIONE 30MG PO DAILY X 2 DAYS THEN PREDNSIONE 20MG PO DAILY X 2 DAYS THEN PREDNSIONE 10MG PO DAILY X 2 DAYS THEN STOP. Azithromycin (Azithromycin) 250 Mg Tab 250 MG PO QAM for 2 Days, TAB Continued Medications: Albuterol Hfa (Ventolin Hfa) 200 Puffs/78542 Mcg Aers 2 PUFFS INH Q1H, #1 INHALER Discontinued Medications: Prednisolone (Prednisolone) 1 Pow Pow 10 PO UD TAPER DOSE TAKE 5 TABS FOR 2 DAYS, TAKE 4 TABS FOR 2 DAYS, TAKE 3 TABS FOR 2 DAYS, TAKE 2 TABS FOR 2 DAYS TAKE 1 TAB FOR 2 DAYS Admission Information HPI (per Admitting provider): A 31-year-old female with past medical history significant for asthma, bipolar, tobacco abuse, presents with shortness of breath and cough going on for the last 4 days who is taking rescue Prednisone and albuterol inhaler but not getting better, so she came to the ER. In the ER, after the one hour of treatments and IV steroids, she was still saturating 90% and we are called for admission. The patient is having dry cough. Denies any fever, chills, no headaches, no blurred vision, no nausea, no vomiting, has some abdominal pain while she was coughing, no diarrhea, no constipation, no blood in the urine, no blood in the stools. Currently, resting comfortably, somewhat tachycardic and oxygen saturation 90% on room air. Physical Exam (per Admitting): GENERAL: The patient is of moderate build, not in distress. VITAL SIGNS: Temperature 36.7, pulse 99, respiratory rate 20, blood pressure 134/75, oxygen 90% room air. HEENT: No pallor, no icterus. Pupils equal, round, and reactive to light. NECK: No JVD, no neck masses, no carotid bruits. CARDIOVASCULAR: S1, S2 heard. Tachycardia. No murmur, no gallop. RESPIRATORY SYSTEM: Normal AP diameter. No accessory muscle use, bilateral rhonchi heard. No crackles. ABDOMEN: Soft, bowel sounds, nontender. No distention. CENTRAL NERVOUS SYSTEM: Cranial nerves are grossly intact. Nonfocal. EXTREMITIES: No edema, no erythema Hospital Course This is a 31-year-old female who presents with acute asthma. 1. Asthma exacerbation, probable bronchitis. failed out patient treatment moderate persistent asthma exacerbation? on IV steroids, azithromycin, nebs around the clock and p.r.n. and monitor on tele floor. improved discharged on albuterol nebs and prednisone taper and azithromycin to complete the course f/u with pcp. 2. Depression, not on medication. Follow with the family doctor. discharged home Total time spent on discharge = 35MINUTES This includes examination of the patient, discharge planning, medication reconciliation, and communication with other providers. Discharge Instructions Discharge Instructions Date of Service Jan 07, 2017. Admission Reason for Admission: Asthma Exacerbation Discharge Discharge Diagnosis / Problem: ASTHMA EXACERBATION Discharge Goals Goal(s): Decrease discomfort, Improve function Activity Recommendations Activity Limitations: resume your previous activity . Instructions / Follow-Up Instructions / Follow-Up FOLLOWUP WITH FAMILY DOCTOR Tarik Novoa ON AT 11AM. Current Hospital Diet Patient's current hospital diet: Regular Diet Discharge Diet Recommended Diet: Regular Diet Pending Studies Studies pending at discharge: no Work Instructions Return To Work: after follow-up Additional Instructions: LEAVE FROM WORK UNTIL SEEN BY FAMILY DOCTOR NO STERNOUS ACTIVITY Medical Emergencies . Who to Call and When: Medical Emergencies: If at any time you feel your situation is an emergency, please call 911 immediately. . Non-Emergent Contact Non-Emergency issues call your: Primary Care Provider . . "Provider Documentation" section prepared by Wyatt Mari. . VTE Core Measure Inpt VTE Proph given/why not?: SCD's
== END 2017-01-07 15:46 | disposition home or self-care (01) | DRG 203 ==
LOC: C.EDB 09:29 → C.2T 13:52 → ENRESERV 14:07 → C.MS4W 01-06 09:09 → ENRESERV 01-06 10:02
PROVIDERS: ADMIT Internal Medicine; ATTEND Internal Medicine
DX: J45.41 Moderate persistent asthma with (acute) exacerbation (principal); J40 Bronchitis, not specified as acute or chronic; Z87.891 Personal history of nicotine dependence

== ENCOUNTER 2017-06-29 09:43 | Emergency (ER) | payer OTHER ==
[~2017-06-29] VITALS: Ht 165.1 cm; Wt 53.4 kg
[~2017-06-29 09:43] MED LIST changes: +ALBINS/ INH; +AZIT-57 PO; -DRV100 PO; -PENI-82 PO; +PRED10TA PO; +VNTHFA/IN INH
[2017-06-29 09:48] VITALS: TEMP 36.8; Ht 165.1 cm; Wt 53.4 kg
[2017-06-29] MEDS ORDERED: ONDA4TAB46 PO (10:32)
--- NOTE | 2017-06-29 10:56 | DIAGNOSTIC IMAGING REPORT ---
CHEST 2 VIEWS ROUTINE CLINICAL HISTORY: Shortness of breath. COMPARISON STUDY: Radiograph January 05, 2017. FINDINGS: Lung volumes are normal. There is no pneumothorax or pleural effusion. There is no evidence for pulmonary edema. Cardiac size is normal. Mediastinal contours are normal. Appearance of the chest is unchanged. IMPRESSION: No acute cardiopulmonary findings. Electronically signed by: Aj Vega M.D. 06/29/2017 10:54 AM Dictated Date/Time: 06/29/2017 10:52 AM
[2017-06-29 11:20] LABS: INFLUENZA B ANTIGEN Neg for Influ B (NEG)
--- NOTE | 2017-06-29 11:49 | EMERGENCY ROOM VISIT NOTE ---
ED Visit Note First contact with patient: 09:58 I have seen and examined this patient with Oleg Montes and generally agree with the treatment plan as discussed. Problem List Medical Problems: (1) Asthma Status: Chronic (2) Bronchitis Status: Resolved (3) Migraines Status: Chronic Current/Historical Medications Scheduled Albuterol Hfa (Ventolin Hfa), 2 PUFFS INH Q1H Scheduled PRN Albuterol Sulf (Proventil 0.083% 2.5MG/3ML), 2.5 MG INH QID PRN for SOB/Wheezing Ondansetron Hcl (Zofran), 4 MG PO UD PRN for Nausea Allergies Coded Allergies: No Known Allergies (Unverified , 06/29/17) Vital Signs Date Time Temp Pulse Resp B/P (MAP) Pulse Ox O2 Delivery O2 Flow Rate FiO2 06/29/17 11:44 90 18 149/100 97 Room Air 06/29/17 09:48 36.8 97 18 138/92 98 Room Air Laboratory Results Test 06/29/17 10:00 Influenza Type A Antigen POS for Influ A (NEG) Influenza Type B Antigen Neg for Influ B (NEG) Departure Information Referrals Tarik Marks M.D. (PCP) Forms WORK / SCHOOL INSTRUCTIONS, HOME CARE DOCUMENTATION FORM, IMPORTANT VISIT INFORMATION Patient Instructions My [facility]
[2017-06-29 12:05] VITALS: BP 149/100; PULSE 90; O2SAT 97
--- NOTE | 2017-06-29 15:47 | EMERGENCY ROOM VISIT NOTE ---
ED Visit Note First contact with patient: 09:58 CHIEF COMPLAINT: Fever, congestion, aches, and cough HISTORY OF PRESENT ILLNESS: This 31-year-old white female patient has had fever , diffuse body aches, shortness of breath, cough, and head congestion for 3 days. She notes chills and sweats but no specific fever. She denies any nausea , vomiting, diarrhea, or chest pain. No ear pain, dizziness, or lightheadedness. No sore throat. No difficulty with speech or gait, no confusion or incoordination. Pain is 5/10. No treatment yet. No other complaints. No known ill contacts. REVIEW OF SYSTEM: HEENT: No dizziness, visual problems, hearing loss, or tinnitus. There is no difficulty swallowing and no oral lesions are present. LYMPH: No adenopathy. PULMONARY: No shortness of breath, sputum production or hemoptysis. CARDIOVASCULAR: No chest pain, palpitations, shortness of breath or peripheral edema. GASTROINTESTINAL: No diarrhea, constipation, nausea, vomiting, or abdominal pain. GENITOURINARY: No dysuria, frequency, urgency or nocturia. NEUROLOGIC: No weakness, muscle tenderness, epilepsy or history of neurological problems. MUSCULOSKELETAL: No history of joint tenderness/swelling. No history of arthritis or arthralgias. SKIN: No rashes or lesions. ENDOCRINE: No history of diabetes, thyroid disorders, or abnormal hair growth. PMH: Supplemental sheet was reviewed. Previous surgeries: None Medical history: Significant for history of asthma, migraines, and bronchitis. Current medications: Reviewed and filed in patient's chart Allergies: NKDA Family history: Significant for diabetes, heart disease, hypertension, cancer, lung disease, and seizures. Parents are living. SOCIAL HISTORY: Patient lives with her fianc and child. Positive tobacco use of 1-1/2 packs per day, no EtOH use. Employed in room service food service attendant. PHYSICAL EXAM: Vital Signs: Afebrile. Gen: Well-developed, well-nourished, young white female, in no acute distress. She is sitting on the bed. Alert and oriented. Skin: Warm and dry with good turgor. No rashes or lesions. No ecchymosis or erythema. The patient is not diaphoretic. No abrasions. Multiple piercings. HEAD: Atraumatic, without temporal or scalp tenderness. EYES: PERRL, EOMI, no discharge or injection. Nares: Clear nasal drainage is present. No epistaxis. THROAT: Pharynx without injection, exudate or tonsillar hypertrophy. Airway patent. Postnasal drip is noted. Lymphatics: Anterior and posterior chains are palpated without enlargement or tenderness. HEART: Regular rate and rhythm without murmurs, ectopy, gallops, or rubs. Peripheral pulses are 2+. LUNGS: Clear to auscultation and breath sounds equal, no wheezes or rales. Bilateral rhonchi that clear with coughing. Fair air movement. Patient is able to take a deep breath. Frequent wet cough. ABDOMEN: Was inspected, auscultated, and palpated. Soft, nontender, no hepatosplenomegaly, or masses. No rebound. No CVA tenderness. Neurologic: Gross sensation is intact across the upper and lower extremities by soft touch. Musculoskeletal: Patient has no discomfort with palpation over the cervical spine. Full range of motion of the neck. EMERGENCY DEPARTMENT COURSE: Nasal swab was obtained and was positive for influenza A. Chest x-ray obtained today was read by radiology as unremarkable. DIAGNOSIS: Influenza A DISCHARGE INSTRUCTIONS: Patient was educated regarding today's findings. Conservative care measures were discussed. Maintain hydration. Rest as able. Ibuprofen, 600 mg every 6 hours for fever or pain. Add Tylenol every 6 hours for breakthrough discomfort or fever. Delsym syrup 2 teaspoons b.i.d. as needed for cough. See your doctor in a few days if the symptoms persist. She may also return to the ED if persisting symptoms remain. Influenza handout was provided. Note was provided to be out of work for up to a week, unless she may wear a mask. Avoid public contact if possible for the next week. She was offered Tamiflu to shorten the course of her symptoms. She declined the prescription. She or he has no inhaler. She was instructed to stop smoking. Use the inhaler every 4 hours while awake. Wash her hands frequently. Problem List Medical Problems: (1) Asthma Status: Chronic (2) Bronchitis Status: Resolved (3) Migraines Status: Chronic Current/Historical Medications Scheduled Albuterol Hfa (Ventolin Hfa), 2 PUFFS INH Q1H Scheduled PRN Albuterol Sulf (Proventil 0.083% 2.5MG/3ML), 2.5 MG INH QID PRN for SOB/Wheezing Ondansetron Hcl (Zofran), 4 MG PO UD PRN for Nausea Allergies Coded Allergies: No Known Allergies (Unverified , 06/29/17) Vital Signs Date Time Temp Pulse Resp B/P (MAP) Pulse Ox O2 Delivery O2 Flow Rate FiO2 06/29/17 12:05 90 18 149/100 97 06/29/17 11:44 90 18 149/100 97 Room Air 06/29/17 09:48 36.8 97 18 138/92 98 Room Air Laboratory Results Test 06/29/17 10:00 Influenza Type A Antigen POS for Influ A (NEG) Influenza Type B Antigen Neg for Influ B (NEG) Departure Information Impression Primary Impression: Influenza A Dispostion Home / Self-Care Condition GOOD Referrals Tarik Marks M.D. (PCP) Forms WORK / SCHOOL INSTRUCTIONS, HOME CARE DOCUMENTATION FORM, Days off work : 7 [employer], MOTRIN USE, TYLENOL USE, Work Instructions, Return To Work: 1 week Additional Instructions: patient may return sooner if she may wear a mask at work. She must wash he hands frequently. IMPORTANT VISIT INFORMATION Patient Instructions My [facility] Additional Instructions Maintain hydration Tylenol and Motrin every 6 hours as needed for discomfort/fever control Stop smoking Continue your inhalers as previously directed Follow-up with your PCP or return to the ED for any acute worsening of symptoms Wear a mask when in public for the next week Wash your hands frequently Work Instructions Return To Work: 1 week Additional Work Instructions: patient may return sooner if she may wear a mask at work. She must wash her hands frequently.
== END 2017-06-29 12:04 | disposition home or self-care (01) ==
LOC: C.EDB 09:47 → C.EDC 12:04
DX: J10.1 Influenza due to other identified influenza virus with other respiratory manifestations (principal); J45.909 Unspecified asthma, uncomplicated; F17.200 Nicotine dependence, unspecified, uncomplicated; Z87.09 Personal history of other diseases of the respiratory system; Z83.3 Family history of diabetes mellitus; Z82.49 Family history of ischemic heart disease and other diseases of the circulatory system; Z83.6 Family history of other diseases of the respiratory system; Z82.0 Family history of epilepsy and other diseases of the nervous system